=== PATIENT | male | born 1985 | race Caucasian/White ===

== ENCOUNTER 2017-08-02 05:41 | Day surgery (SDC) | payer OTHER ==
[~2017-08-02] VITALS: Ht 182.9 cm; Wt 95.2 kg
[2017-08-02] MEDS ORDERED: VENTOLIN HFA18 GM INH (05:58)
--- NOTE | 2017-08-02 08:16 | NUR ---
08/02/17 0816 Jaqueline Diaz 0808-PATIENT ARRIVED TO PACU ON 6L MASK O2 SAT 100% PATIENT AWAKE MOVING ARMS. LEFT LEG ELEVATED ON PILLOW DRESSING CDI GOOD CAP REFILL AND PEDAL PULSE. GUARDS AT BEDSIDE. SR 0811-PATIENT REQUESTING HUGS GUARDS AT BEDSIDE. PATIENT REPORTS "LOOPY" ORIENTED TO PACU. 0816-PATIENT WEANED TO RA O2 SAT 97% DROWSY. REPORTS PAIN 9/10 TALKING.
--- NOTE | 2017-08-02 08:56 | NUR ---
[id number]: PT ARRIVES TO DS UNIT AWAKE AND ALERT. PT PROVIDED ICED WATER AND CRACKERS. PT DENIES ANY NAUSEA AND TOLERATES WATER WELL. PT RESTING IN BED WATCHING TV WITH [employer] GUARD. CALL LIGHT AT PT LEFT SIDE.
--- NOTE | 2017-08-02 10:11 | NUR ---
PT TOLERATES CRACKERS WELL WITH NO C/O NAUSEA. PT UP TO BR WITH ASSIST BY [employer] GUARDS. PT VOIDS QS WITH NO STATED PROBLEMS. DC CRITERIA MET W/IN 1 HR. DC INSTRUCTIONS GIVEN IN PRESENCE OF PT AND 3 [employer] GUARDS. ALL QUESTIONS ANSWERED. PT DC'S VIA WHEELCHAIR WITH [employer] GUARDS. REPORT CALLED TO [facility].
--- NOTE | 2017-08-02 12:48 | OR ---
[facility] [address], [place] [address] Signed DATE OF OPERATION: 08/02/2017 SURGEON: Brayan Rich MD PREOPERATIVE DIAGNOSIS: Painful retained hardware, left ankle following open reduction and internal fixation. POSTOPERATIVE DIAGNOSIS: Painful retained hardware, left ankle following open reduction and internal fixation. PROCEDURE: Removal of hardware left ankle including plate and screws from the fibula and two screws from the tibia. ANESTHESIA: General. SPECIMENS AND COMPLICATIONS: There were no specimens or complications. TOURNIQUET TIME: About 28 minutes. WHAT WAS DONE: The patient was taken to the operating room. After anesthesia was induced and airway secured, the patient was positioned, and prepped and draped in a routine sterile fashion. Beginning laterally, his scar was used as a guide and a straight lateral incision was made over the fibula. Skin was divided sharply. Subcutaneous tissue was bluntly spread and we exposed the fibula distally then elevated the peroneal tendons off the plate, to which they have become somewhat adherent. The screw heads were then gently evacuated and removed without difficulty. The most distal syndesmotic screw had broken as was demonstrated on the preop imaging. All the remaining hardware was removed without difficulty. The plate was then elevated with a small osteotome and delivered out of the wound. We then able to curette each of the screw holes, irrigate the wound and closed in a standard fashion. We then used the medial scar as a guide, and made about a 2 cm incision over the tip of the medial malleolus. Again, using sharp and blunt dissection. We were able to excavate the heads of the two screws and removed them without difficulty. Again, the wound was irrigated and closed in standard fashion. Sterile dressings were applied, over which a bulky dressing was placed. The patient was awakened to the Electronically Signed By: BRAYAN RICH MD 08/02/17 1248 PATIENT NAME: RENÉE ARIN OPERATIVE REPORT DATE OF : 81 REPORT #: [id number] PHYSICIAN: BRAYAN RICH MD PCP: JOHN NEWELL MD REPORT IS CONFIDENTIAL AND NOT TO BE RELEASED WITHOUT AUTHORIZATION [address] [address] Signed recovery room where he arrived in stable condition. Counts were correct and antibiotic protocols were followed. Brayan Rich MD WFB/MODL /[id number] Copies: ~ Electronically Signed By: BRAYAN RICH MD 08/02/17 1248 PATIENT NAME: RENÉE RAINIC OPERATIVE REPORT DATE OF : 81 REPORT #: [id number] PHYSICIAN: BRAYAN RICH MD PCP: JOHN NEWELL MD REPORT IS CONFIDENTIAL AND NOT TO BE RELEASED WITHOUT AUTHORIZATION
== END 2017-08-02 10:00 | disposition home or self-care (01) ==
LOC: DS 05:41 → OPS 05:41
PROVIDERS: Orthopaedic Surgery
PROC: 0SPG04Z Removal of Internal Fixation Device from Left Ankle Joint, Open Approach (ICD-10-PCS; principal; 2017-08-02 06:45)
DX: T84.84XA Pain due to internal orthopedic prosthetic devices, implants and grafts, initial encounter (principal); J45.909 Unspecified asthma, uncomplicated
CPT/HCPCS: 01480; 73600; J0690; J1100; J1170; J1885; J2250; J2405; J2704; J3010; J7120